=== PATIENT | female | born 1955 | race Caucasian/White ===

== ENCOUNTER 2020-05-23 06:16 | Observation (INO) ==
[2020-05-23] MEDS ORDERED: CeFAZolin Syr 2,000MG/20 ML 2,000 MG/20 ML SYRINGE IVPB ONE (06:54)
[2020-05-23] MEDS ORDERED: Albumin Human 5% 12.5 GM/250 ML IV.SOLN IVPB ONE (06:57)
[2020-05-23] MEDS ORDERED: *HR* Rocuronium Bromide 50 MG/5 ML VIAL ONE (07:04)
[2020-05-23] MEDS ORDERED: Ondansetron 4 MG/2 ML VIAL ONE (07:04)
[2020-05-23] MEDS ORDERED: *HR* Succinylcholine 200 MG/10 ML VIAL IVP ONE (07:04)
[2020-05-23] MEDS ORDERED: Lidocaine -MPF 2% 2 ML VIAL ONE ×2 (07:04→07:24)
[2020-05-23] MEDS ORDERED: Lidocaine HCL 4 ML Topical Solution (Laryng-O-Jet Kit Sterile Pak) TP ONE (07:04)
[2020-05-23] MEDS ORDERED: *HR* Propofol 200 MG/20 ML VIAL IVP ONE (07:07)
[2020-05-23] MEDS ORDERED: *HR* Midazolam HCl 2 MG/2 ML VIAL ONE (07:08)
[2020-05-23] MEDS ORDERED: *HR* FentaNYL (PF) 100 MCG/2 ML VIAL ONE ×2 (07:08→09:34)
[2020-05-23] MEDS ORDERED: Ondansetron 4 MG/2 ML VIAL IVP PRN ×2 (07:15→13:18)
[2020-05-23] MEDS ORDERED: Famotidine 20 MG/2 ML VIAL IVP ONE (07:15)
[2020-05-23] MEDS ORDERED: *HR* Labetalol 20 MG/4 ML SYRINGE IVP PRN (07:15)
[2020-05-23] MEDS ORDERED: Gabapentin 300 MG CAPSULE PO ONE (07:15)
[2020-05-23] MEDS ORDERED: *HR* Methadone 5 MG TABLET PO ONE (07:15)
[2020-05-23] MEDS ORDERED: *HR* Remifentanil 1 MG VIAL IVP ONE (07:19)
[2020-05-23] MEDS ORDERED: *HR* Phenylephrine 10 MG/ML VIAL ONE (07:22)
[2020-05-23] MEDS ORDERED: Albumin Human 5% 12.5 GM/250 ML IV.SOLN ONE (07:24)
[2020-05-23] MEDS ORDERED: Heparin 1,000 UNITS/500 mL 500 ML ONE (07:29)
[2020-05-23] MEDS: Ringers Solution, Lactated 1,000 ML IVC SCH ×3 (07:31→10:00)
[2020-05-23] MEDS ORDERED: EPHEDrine 50 MG/ML VIAL ONE ×2 (08:03→10:24)
[2020-05-23] MEDS ORDERED: Bacitracin 50,000 UNIT, Polymyxin B Sulfate 500,000 UNIT, Sodium Chloride IRRigation 1,... IR ONE (08:15)
[2020-05-23] MEDS ORDERED: Sugammadex Sodium 200 MG/2 ML VIAL IV ONE (10:24)
[2020-05-23] MEDS ORDERED: *HR* HYDROMORPHONE 2 MG/ML VIAL ONE (11:31)
[2020-05-23] MEDS: *HR* HYDROmorphone (PF) 1 MG/ML SYRINGE IVP PRN ×4 (11:52→12:22)
[2020-05-23] MEDS: *HR* OxyCODONE Immed Rel 5 MG TABLET PO PRN ×3 (11:53→20:31)
[2020-05-23] MEDS ORDERED: Ringers Solution, Lactated 1,000 ML IVC SCH (13:18)
[2020-05-23] MEDS ORDERED: tiZANidine 4 MG TABLET PO PRN (13:18)
[2020-05-23] MEDS ORDERED: Naloxone 0.4 MG/ML INJ IVP PRN (13:18)
[2020-05-23] MEDS: Gabapentin 300 MG CAPSULE PO SCH ×2 (14:45→20:15)
[2020-05-23] MEDS: CeFAZolin 2 GM/120 ML BAG IVPB SCH (16:21)
[2020-05-23] MEDS: *HR* HYDROcodone/Acet 5/325 mg TABLET PO PRN (18:55)
[2020-05-23] MEDS: Budesonide/Formoterol 160/4.5 1 PUFF INH IH SCH ×2 (21:40→22:18)
[2020-05-24] MEDS: *HR* OxyCODONE Immed Rel 5 MG TABLET PO PRN ×6 (00:32→22:17)
[2020-05-24] MEDS: CeFAZolin 2 GM/120 ML BAG IVPB SCH (00:32)
[2020-05-24] MEDS: *HR* HYDROcodone/Acet 5/325 mg TABLET PO PRN (03:29)
[2020-05-24] MEDS: Acetaminophen 325 MG TABLET PO PRN ×2 (10:21→18:14)
[2020-05-24] MEDS: Propranolol LA (24 HR) 60 MG CAP.SA.24H PO SCH (10:21)
[2020-05-24] MEDS: Gabapentin 300 MG CAPSULE PO SCH ×3 (10:22→21:29)
[2020-05-24] MEDS: PARoxetine 20 MG TABLET PO SCH (10:22)
[2020-05-24] MEDS: Budesonide/Formoterol 160/4.5 1 PUFF INH IH SCH ×2 (16:52→19:47)
[2020-05-25] MEDS: *HR* OxyCODONE Immed Rel 5 MG TABLET PO PRN ×2 (03:17→08:12)
[2020-05-25] MEDS: Budesonide/Formoterol 160/4.5 1 PUFF INH IH SCH (07:54)
[2020-05-25] MEDS: Gabapentin 300 MG CAPSULE PO SCH (08:11)
[2020-05-25] MEDS: PARoxetine 20 MG TABLET PO SCH (08:11)
[2020-05-25] MEDS: Propranolol LA (24 HR) 60 MG CAP.SA.24H PO SCH (08:11)
[2020-05-25 08:30] VITALS: BP 97/46
== END 2020-05-25 12:00 | disposition home or self-care (01) ==
LOC: SAMDAY 06:16 → 3NENU 06:16
PROVIDERS: ADMIT Orthopaedic Surgery Orthopaedic Surgery of the Spine; ATTEND Orthopaedic Surgery Orthopaedic Surgery of the Spine